=== PATIENT | female | born 1990 | race Two or more races ===

== ENCOUNTER 2024-08-03 00:28 | Emergency (ER) | payer MEDICAID, OTHER ==
[~2024-08-03] VITALS: Ht 152.4 cm; Wt 83.1 kg
[2024-08-03] MEDS ORDERED: DICY10CA PO (02:01)
[2024-08-03] MEDS ORDERED: ZOFR4T PO (02:01)
[2024-08-03] MEDS ORDERED: ACET500T58 PO (02:01)
--- NOTE | 2024-08-03 02:01 | ED.PDOC ---
General HPI Comments This patient is a morbidly obese 33-year-old female who arrives to the ED today for evaluation of lower abdominal pain concerns for the past four days with nausea. Patient states the symptoms came on has been unrelenting. Patient denies any history of uterine fibroids or ovarian cysts. Patient denies any fever, constipation, diarrhea. Vital signs were remarkable for mild tachycardia at arrival. Chief Complaint: Abdominal Pain Time Seen by MD: 00:35 Reviewed notes: Nurses Notes Information Source: Patient Mode of Arrival: Ambulatory Severity: Moderate Timing: Days Duration: Since onset Prehospital treatment: Treatment Onset: Spontaneous Symptoms: None History of: None Location: Abdomen associated signs and symptoms: Abdominal Pain, Nausea Past Medical History PAST MEDICAL HISTORY: Denies Surgical History: Denies all surgeries BILINGUAL OFFICE ASSISTANT History: No Pertinent BILINGUAL OFFICE ASSISTANT History Family History Family History: Reviewed,noncontributory to illness, No family hx of Cancer, No family hx of DM, No family hx of Heart kike, No family hx of HTN, No family hx ofKidney kike, No family hx of Liver kike, No family hx of Lung kike, No family hx of Stroke Social History Smoker: Non-Smoker Alcohol: Denies ETOH Use Drugs: Denies Drug Use Lives In: Home Constitutional: denies: chills, diaphoresis, fatigue, fever, malaise, sweats, weakness, others EENTM: denies: blurred vision, double vision, ear bleeding, ear discharge, ear drainage, ear pain, ear ringing, eye pain, eye redness, hearing loss, mouth pain, mouth swelling, nasal discharge, nose bleeding, nose congestion, nose pain, photophobia, tearing, throat pain, throat swelling, voice changes, others Respiratory: denies: cough, hemoptysis, orthopnea, SOB at rest, shortness of breath, SOB with excertion, stridor, wheezing, others Cardiovascular: denies: chest pain, dizzy spells, diaphoresis, Dyspnea on exertion, edema, irregular heart beat, left arm pain, lightheadedness, palpitations, PND, syncope, others Gastrointestinal: reports: abdominal pain, nausea; denies: abdomen distended, blood streaked bowels, constipated, diarrhea, dysphagia, difficulty swallowing, hematemesis, melena, poor appetite, poor fluid intake, rectal bleeding, rectal pain, vomiting, others Genitourinary: denies: abnormal vagina bleeding, burning, dyspareunia, dysuria, flank pain, frequency, hematuria, incontinence, pain, , vagina discharge, urgency, others Neurological: denies: dizziness, fainting, headache, left sided numbness, left sided weakness, numbness, paresthesia, pre-existing deficit, right sided numbness, right sided weakness, seizure, speech problems, tingling, tremors, weakness, others Musculoskeletal: denies: back pain, gout, joint pain, joint swelling, muscle pain, muscle stiffness, neck pain, others Integumetry: denies: bruises, change in color, change in hair/nails, dryness, laceration, lesions, lumps, rash, wounds, others Allergic/Immunocompromised: denies: Difficulty Healing, Frequent Infections, Hives, Itching, others Hematologic/Lymphatic: denies: anemia, blood clots, easy bleeding, easy bruising, swollen glands, others Endocrine: denies: excessive hunger, excessive sweating, excessive thirst, excessive urination, flushing, intolerance to cold, intolerance to heat, unexplained weight gain, unexplained weight loss, others Psychiatric: denies: anxiety, bipolar disorder, depression, hopeless, panic disorder, schizophrenia, sleepless, suicidal, others Physical Exam General Appearance: Moderate Distress ([id number] distress. Patient looks mildly toxic at arrival.), Normal HEENT: Normal ENT Inspection, Pharynx Normal, TMs Normal Neck: Full Range of Motion, Non-Tender, Normal, Normal Inspection Respiratory: Chest Non-Tender, Lungs Clear, No Accessory Muscle Use, No Respiratory Distress, Normal Breath Sounds Cardiovascular: No Edema, No JVD, No Murmur, No Gallop, Normal Peripheral Pulses, Regular Rate/Rhythm Breast Exam: Deferred Gastrointestinal: Other (Diffuse bilateral lower quadrant/pelvic tenderness to palpation. No pulsatile masses. Abdomen was reasonably soft. No definitive suprapubic tenderness.) Genitalia: Deferred Pelvic: Deferred Rectal: Deferred Extremities: No calf tenderness, Normal capillary refill, Normal inspection, Normal range of motion, Non-tender, No pedal edema Neurologic: Alert, No Motor Deficits, Normal Affect, Normal Mood, No Sensory Deficits Cerebellar Function: Normal Reflexes: Normal Skin: Dry, Normal Color, Warm Lymphatic: No Adenopathy Was a procedure done? Was a procedure done?: No Differential Diagnosis Kidney stone (Female): Other (Influenza a/B, COVID-19, UTI, viral gastroenteritis), N/A X-Ray, Labs, Meds, VS Vital Signs Date Time Temp Pulse Resp B/P (MAP) Pulse Ox O2 Delivery O2 Flow Rate FiO2 08/03/24 00:58 99.8 123 18 124/76 (92) 95 Lab Test 08/03/24 00:50 Range/Units Influenza Type A Antigen Pending Influenza Type B Antigen Pending SARS-CoV-2 Antigen (Rapid) Pending X-Ray, Labs, Meds, VS Comment All test results were pending at time of this note. Patient care will be transferred to Dr. Saez for evaluation of studies when returned. Once reviewed, he will respond accordingly. Time of 1ST Reevaluation: :59 Reevaluation 1ST: Improved Consultation: PCP Patient Education/Counseling: Diagnosis, Treatment Family Education/Counseling: Diagnosis, Treatment Departure 1 Departure Time of Disposition: 01:59 Impression: Primary Impression: Viral gastroenteritis Disposition: HOME / SELF CARE / HOMELESS Condition: Stable Additional Instructions: Advise utilizing medication as needed for symptomatic relief. Good hydration and healthy nutrition throughout illness event. e-Prescriptions Acetaminophen (Acetaminophen) 500 Mg Tab 500 MG PO Q4HP PRN, #30 TAB Prov: LESLYE CAMPUZANO [facility] 08/03/24 Ondansetron Odt 4MG Tab (ZOFRAN PO) 4 Mg Tb 4 MG PO Q6HP PRN, #20 TAB ODT TAB-DISSOLVE IN MOUTH, THEN SWALLOW Prov: LESLYE CAMPUZANO [facility] 08/03/24 Dicyclomine Hcl (BENTYL CAPSULE) 10 Mg Cp 1 CAP PO Q6HPRN, #20 CAP 0 Refills Prov: LESLYE CAMPUZANO [facility] 08/03/24 Discharged With: Self, Friend Critical Care Note Critical Care Time?: No Stability Stability form required: No Heart Score Heart Score: Heart Score Response (Comments) Value History N/A 0 EKG N/A 0 Age N/A 0 Risk Factors N/A 0 Troponin N/A 0 Total 0 LESLYE CAMPUZANO [facility] Aug 03, 2024 02:01
[2024-08-03] MEDS: DICYCLOMINE HCL (10MG/ML) 2 ML AMPULE IM ONE (02:07)
[2024-08-03] MEDS: ONDANSETRON ODT 4 MG TAB PO ONE (02:07)
[2024-08-03 02:12] LABS: Urine Bacteria MANY /hpf (None Seen); Urine Blood 2+ /uL (Negative); Urine Clarity Turbid (Clear); Urine Color Yellow (Yellow); Urine Hyaline Cast FEW /lpf (0 - 2); Urine Mucus FEW (None Seen); Urine Protein, UAD 2+ (Negative); Urine Specific Gravity 1.018 (1.001-1.035); Urine Squamous Epithelial Cell MOD /hpf (<5); Urine Urobilinogen 4 mg/dL (Negative); Urine WBC 677 /hpf (0 - 5); Urine WBC Clumps PRESENT /hpf (None Seen)
[2024-08-03 02:15] VITALS: PULSE 123; RESP 18; O2SAT 95
[2024-08-03 02:17] LABS: COVID19 ANTIGEN SOFIA FIA NEGATIVE (NEGATIVE); Rapid Influenza A Negative (Negative); Rapid Influenza B Negative (Negative)
[2024-08-03 04:42] VITALS: BP 106/66; PULSE 101; RESP 20; TEMP 98.5; O2SAT 98
== END 2024-08-03 05:28 | disposition home or self-care (01) ==
LOC: ER 00:28
DX: A08.4 Viral intestinal infection, unspecified (principal); E66.01 Morbid (severe) obesity due to excess calories; R00.0 Tachycardia, unspecified; R11.0 Nausea; Z20.822 Contact with and (suspected) exposure to COVID-19
CPT/HCPCS: 36415; 81001; 87426; 87804; 96372; 99283; J0500; Q0162